=== PATIENT | male | born 1990 | race Two or more races ===

== ENCOUNTER 2020-11-16 17:27 | Emergency (ER) | payer OTHER ==
[~2020-11-16] VITALS: Ht 167.6 cm; Wt 72.6 kg
[2020-11-16] MEDS ORDERED: CANABIS (17:33)
[2020-11-17] MEDS ORDERED: MEDROLPACK PO (11:00)
[2020-11-17] MEDS ORDERED: CYCLOBENZAPRINE10 MG PO (11:01)
== END 2020-11-17 10:53 | disposition home or self-care (01) ==
LOC: ER 17:27
DX: M60.88 Other myositis, other site (principal); R53.81 Other malaise

== ENCOUNTER 2020-11-17 09:04 | Emergency (ER) | payer OTHER ==
[~2020-11-17] VITALS: Ht 167.6 cm; Wt 72.6 kg
[~2020-11-17 09:04] MED LIST: CANABIS
[2020-11-17] MEDS ORDERED: MEDROLPACK PO (11:00)
[2020-11-17] MEDS ORDERED: CYCLOBENZAPRINE10 MG PO (11:01)
== END 2020-11-17 11:08 | disposition home or self-care (01) ==
LOC: ER 09:04
DX: M60.88 Other myositis, other site (principal); R53.81 Other malaise